=== PATIENT | female | born 1995 | race Caucasian/White ===

== ENCOUNTER 2017-02-06 08:02 | Emergency (ER) | payer MEDICAID ==
[~2017-02-06] VITALS: Wt 54.5 kg
[2017-02-06] MEDS ORDERED: LIDOCAINE 1% (MDV) 20 ML INJ SC ONE (08:30)
[2017-02-06] MEDS ORDERED: IBUPROFEN 600 MG TAB PO ONE (08:30)
--- NOTE | 2017-02-06 08:33 | ERD ---
ER Documentation Chief Complaint Date/Time DATE: 02/06/17 Chief Complaint Labial abscess HPI The patient is a 21-year-old female who presents the Emergency Department with complaint of right vaginal abscess. The patient reports that her symptoms began 4 days ago, with onset of swelling, tenderness and pain to the right labial area. The patient notes that she regularly shaves the pubic region, and believes that her symptoms may be secondary to an ingrown hair. Since onset she has been experiencing increased swelling, pain and discomfort, particularly with sitting and ambulation. The pain is aching in nature, and constant, rated as 9 out of 10 in intensity. She denies any spontaneous drainage or bleeding from the area. Denies any red streaking. Denies any fevers, sweats, chills, nausea or vomiting. Denies any new vaginal discharge. Denies dysuria, hematuria or flank pain. Denies any history of similar symptoms in the past. The patient notes that she has been applying warm compresses to the area, though with no significant relief. ROS All systems reviewed and are negative except as per history of present illness. Medications Home Meds Active Scripts Ibuprofen* (Motrin*) 600 Mg Tab, 600 MG PO Q6, #30 TAB Prov:MARY KATE WAGNER PA-C 02/06/17 Sulfamethoxazole/Trimethoprim* (Bactrim Ds* Tablet) 1 Each Tablet, 1 TAB PO BID for 7 Days, TAB Prov:MARY KATE WAGNER PA-C 02/06/17 Allergies Allergies: Coded Allergies: No Known Allergy (Unverified , 02/06/17) Physical Exam Vitals Vital Signs Date Time Temp Pulse Resp B/P Pulse Ox O2 Delivery O2 Flow Rate FiO2 02/06/17 08:07 97.4 99 20 125/80 99 Physical Exam GENERAL: Well-developed, well-nourished, female, in no acute distress HEENT: Head is normocephalic, atraumatic. No scleral pallor or icterus. Pupils equal, round and reactive to light. Conjunctiva pink. Moist mucous membranes. NECK: Supple. Full range of motion. RESPIRATORY: Lungs are clear to auscultation bilaterally. Equal breath sounds. Normal expiratory effort. CARDIOVASCULAR: Regular rate and rhythm. S1 and S2 normal. GASTROINTESTINAL: Abdomen is soft, non-tender, and non-distended. No guarding, no rebound tenderness. Normal bowel sounds. GENITOURINARY: 3 cm x 2 cm erythematous, raised, fluctuant abscess to right labia. No spontaneous drainage or bleeding. Mild surrounding warmth and tenderness to palpation. No crepitus. No abnormal lesions. No vaginal discharge. FLANK: No CVA tenderness. EXTREMITIES: No clubbing, cyanosis, or edema. Normal skin perfusion. Moving all extremities. Muscle tone is normal. No focal swelling or erythema. NEUROLOGIC: The patient is alert, awake, and oriented x 3. No focal neurologic deficits. INTEGUMENT: Skin is intact. Warm and dry. PSYCHIATRIC: Cooperative; appropriate. Results 24 hrs Current Medications Medications (Trade) Dose Ordered Sig/Bossman Route PRN Reason Start Time Stop Time Status Last Admin Dose Admin Lidocaine (Xylocaine 1% (Mdv) 20 ml) 20 ml ONCE ONCE SC 02/06/17 08:30 02/06/17 08:31 DC Ibuprofen (Motrin) 600 mg ONCE ONCE PO 02/06/17 08:30 02/06/17 08:31 DC 02/06/17 08:40 Procedures/MDM PROCEDURE: INCISION AND DRAINAGE OF ABSCESS INDICATION: Right labial abscess. CONSENT: Consent was obtained from the patient prior to the procedure. Indications, risks, and benefits were explained at length. PROCEDURE SUMMARY: A timeout protocol was performed prior to initiating the procedure. The patient was positioned appropriately. The area was prepared and draped in the usual sterile manner. The site was adequately anesthetized with approximately 3.5 cc 1% lidocaine without epinephrine. The area was cleaned/ irrigated with 10% betadine solution/NaCl. A sterile #11 blade scalpel was used to make a single linear 1 cm vertical incision along the local skin lines and the copious drainage of purulent discharge was expressed. The abscess was explored thoroughly and sequestered pockets were opened. Bleeding was minimal. Packing: The wound was packed with iodoform gauze The patient tolerated the procedure well without complications. The wound was dressed with sterile 4 x 4 gauze and tape. Standard post-procedure care was explained and return precautions were given. MEDICAL DECISION MAKING: This is a 21-year-old male presenting to the Emergency Department with an abscess that underwent incision and drainage. The patient had foul-smelling purulent drainage present s/p I&D. Normal saline was used for irrigation, until clear fluid was expressed from the site. The site was then packed. The patient was neurovascularly intact prior to and status post procedure. She tolerated the procedure well, with no present complications. At this time the patient is in stable condition and therefore can be discharged home with strict return precautions for signs of infections, uncontrollable pain , neurovascular deficits, or any form of worsening or deteriorating condition. The patient is advised to follow up in 2 days for wound check, packing change, reevaluation and further management, or to return to the ER sooner for any new or worsening symptoms. I shared my medical decision making and plan with the patient at length and in great detail and she verbally understands and agrees with the plan for further observation and care as an outpatient. At the time of discharge all questions were answered Departure Diagnosis: Primary Impression: Labial abscess Condition: Stable Patient Instructions: Abscess Drainage, Abscess, Antiobiotic Treatment Only Additional Instructions: Follow up with your primary medical provider or in the ED in 2 days for wound check, packing removal/change, reevaluation and further management. Return to the ED sooner for any new or worsening symptoms. MARY KATE WAGNER PA-C Feb 06, 2017 08:33
[2017-02-06] MEDS ORDERED: SULF1TAB31 PO (09:33)
[2017-02-06] MEDS ORDERED: IBUP-1542 PO (09:33)
== END 2017-02-06 10:00 | disposition home or self-care (01) ==
LOC: FTE 08:02
DX: N76.4 Abscess of vulva (principal)
CPT/HCPCS: 56405; Z7502; Z7610

== ENCOUNTER 2017-02-08 10:26 | Emergency (ER) | payer MEDICAID ==
[~2017-02-08] VITALS: Ht 160 cm; Wt 58.0 kg
[~2017-02-08 10:26] MED LIST: IBUP-1542 PO; SULF1TAB31 PO
[2017-02-08 10:29] VITALS: Ht 160 cm; Wt 58.0 kg
--- NOTE | 2017-02-08 11:05 | ERD ---
ER Documentation Chief Complaint Date/Time DATE: 02/08/17 TIME: 11:03 Chief Complaint wound check on rt groin HPI 21-year-old female presents with right groin abscess incision and drainage wound check from 2 days ago. Patient reports that the area has been mostly dry and there has been on and off drainage of pus. She does report that her pain is improved however. Has not had any fevers or chills. She is currently taking antibiotics as prescribed to include Bactrim and Keflex. ROS All systems reviewed and are negative except as per history of present illness. Medications Home Meds Active Scripts Ibuprofen* (Motrin*) 600 Mg Tab, 600 MG PO Q6, #30 TAB Prov:MARY KATE WAGNER PA-C 02/06/17 Sulfamethoxazole/Trimethoprim* (Bactrim Ds* Tablet) 1 Each Tablet, 1 TAB PO BID for 7 Days, TAB Prov:MARY KATE WAGNER PA-C 02/06/17 Allergies Allergies: Coded Allergies: No Known Allergy (Unverified , 02/06/17) PMhx/Soc Medical and Surgical Hx: pt denies Medical Hx, pt denies Surgical Hx Hx Alcohol Use: No Hx Substance Use: Yes (marijuana) Hx Tobacco Use: No Physical Exam Vitals Vital Signs Date Time Temp Pulse Resp B/P Pulse Ox O2 Delivery O2 Flow Rate FiO2 02/08/17 10:29 98.4 75 16 112/59 98 Physical Exam General: Well-developed, well-nourished. The patient appears in no acute distress. HEENT: Head is normocephalic, atraumatic. No scleral icterus. Neck: Supple. Nontender. Lungs: Clear to auscultation. Normal air movement. Heart: Regular rate and rhythm. S1 and S2 are normal. No murmurs, gallops, or rubs. Abdomen: Nondistended. Extremities: No clubbing or cyanosis. Moving extremities x 4. No weakness. Neurologic: Alert and oriented 3. No focal deficits. Normal speech and gait. Skin: Lateral to the right labia there is a 1 cm linear laceration, area is mildly tender however dry, without erythema. With pressure application there is a small amount of purulent drainage that occurs. Packing material is seen. Procedures/MDM ED course: Wound care was done, packing material was removed and the area was cleaned with hydrogen peroxide and a clean dressing was applied. Medical decision makin-year-old female presents with abscess incision and drainage wound check, healing appropriately. Suspicion for deep space infection , cellulitis is low. She may continue the antibiotics and return for any worsening any symptoms. Departure Diagnosis: Primary Impression: Encounter for wound re-check Additional Impression: Abscess Condition: Good Patient Instructions: Wound Care JULIA PRESCOTT PA-C Feb 08, 2017 11:05
== END 2017-02-08 11:16 | disposition home or self-care (01) ==
LOC: FTE 10:26
DX: Z48.01 Encounter for change or removal of surgical wound dressing (principal)
CPT/HCPCS: 99281